=== PATIENT | male | born 1980 | race American Indian/Alaskan Native ===

== ENCOUNTER 2017-09-23 05:10 | Emergency (ER) | payer BC, OTHER, SELFPAY ==
[2017-09-23 05:26] VITALS: BP 125/80; PULSE 72; RESP 16; TEMP 98.2; O2SAT 96
[2017-09-23] MEDS ORDERED: Lidocaine 1% Inj (20ml) IJ ONE (05:27)
[2017-09-23] MEDS ORDERED: Povidone Iodine Topical 10% Sol ONE (05:29)
[2017-09-23] MEDS ORDERED: Lidocaine 2% Inj (20ml) ONE (05:31)
--- NOTE | 2017-09-23 05:32 | ED PDOC ---
Upper Extremity Pain/Injury Time Seen by Provider: 09/23/17 05:18 Chief Complaint (Nursing): Finger,Hand,&Wrist Chief Complaint (Provider): Laceration on left 2nd digit History Per: Patient History/Exam Limitations: no limitations Onset/Duration Of Symptoms: Hrs Current Symptoms Are (Timing): Still Present Quality: "Pain" Additional History Per: Patient Additional Complaint(s): 37yo male, comes to ER for evaluation of a laceration he sustained at 10PM last night. Patient states he was cleaning a wall at home when a sharp portion of the showerhead cut his left index finger, causing the laceration. At present, he denies any foreign body sensation, numbness or tingling. He sates his tetanus is up to date and he last had the vaccination 2 years ago. Otherwise, he has no other medical complaints. Past Medical History Reviewed: Historical Data, Nursing Documentation, Vital Signs Vital Signs: Last Vital Signs Temp 98.2 F 09/23/17 05:22 Pulse 72 09/23/17 05:22 Resp 16 09/23/17 05:22 BP 125/80 09/23/17 05:22 Pulse Ox 96 09/23/17 05:22 - Medical History PMH: Asthma - Surgical History Surgical History: No Surg Hx - Family History Family History: States: No Known Family Hx - Home Medications Home Medications: Ambulatory Orders Medication Instructions Recorded Naproxen [Naprosyn] 1 tab PO BID PRN #25 tab 02/08/14 oxyCODONE/Acetaminophen [Percocet 1 tab PO QID PRN #20 tab 02/08/14 5/325 mg Tab] Cephalexin [cephalexin] 500 mg PO Q6 #12 cap 09/23/17 - Allergies Allergies/Adverse Reactions: Allergies Allergy/AdvReac Type Severity Reaction Status Date / Time No Known Allergies Allergy Verified 09/23/17 05:22 Review of Systems ROS Statement: Except As Marked, All Systems Reviewed And Found Negative Musculoskeletal: Positive for: Hand Pain (laceration left 2nd digit) Neurological: Negative for: Weakness, Numbness, Other (tingling) Physical Exam - Reviewed Nursing Documentation Reviewed: Yes Vital Signs Reviewed: Yes - Physical Exam Appears: Positive for: Well, Non-toxic, No Acute Distress Skin: Positive for: Normal Color Eye Exam: Positive for: Normal appearance Pulses-Radial (L): 2+ Pulses-Radial (R): 2+ Extremity: Positive for: Normal ROM (FROM actively of all joints on left 2nd digit), Capillary Refill (< 2 seconds), Other (on dorsal surface of left 2nd digit from DIP extending to middle phalanx, ther is a 1.5 cm v-shaped laceration ; no active bleeding or nail involvement) Neurologic/Psych: Positive for: Alert, Oriented. Negative for: Motor/Sensory Deficits - ECG O2 Sat by Pulse Oximetry: 96 (RA) Pulse Ox Interpretation: Normal Medical Decision Making Medical Decision Making: Impression: Laceration repair Plan: -- Laceration repaired using sutures; see procedure note. Wound cleaned and dressed in sterile dressing Patient instructed on wound care. Scribe Attestation: Documented by Laurel Chan, acting as a scribe for CASIE Sterling. Provider Scribe Attestation: All medical record entries made by the Scribe were at my direction and personally dictated by me. I have reviewed the chart and agree that the record accurately reflects my personal performance of the history, physical exam, medical decision making, and the department course for this patient. I have also personally directed, reviewed, and agree with the discharge instructions and disposition. Procedures - Time-Out Type of Procedure: Laceration repair Site of Procedure: Left 2nd digit Correct Patient: Yes Correct Procedure: Yes Correct Site Marked: Yes PA/Tech: CASIE Sterling - Laceration/Wound Repair Left 2nd digit Wound Length (cm): 1.5 Wound's Depth, Shape: superficial, irregular (v-shaped) Wound Explored: clean Anesthesia: 1% Lidocaine Wound Repaired With: Sutures Suture Size/Type: 5:0, nylon (ethilon) Number of Sutures: 7 Wound Complexity: Simple Sterile Dressing Applied?: Yes Splint Applied?: Yes Type of Splint Applied: finger splint Progress: Patient tolerated procedure well. Disposition - Clinical Impression Clinical Impression: Finger laceration - Patient ED Disposition Is Patient to be Admitted: No - Disposition Referrals: [facility] [Outside] Disposition: Routine/Home Disposition Time: 06:17 Condition: STABLE Additional Instructions: FOLLOW UP WITH YOUR DOCTOR OR RETURN TO ED IN 2 DAYS FOR WOUND CHECK SUTURE REMOVAL IN 10-14 DAYS CHANDRA CAVAZOS, thank you for letting us take care of you today. Your provider was Deshawn Acevedo MD and you were treated for LT HAND LACERATION. The emergency medical care you received today was directed at your acute symptoms. If you were prescribed any medication, please fill it and take as directed. It may take several days for your symptoms to resolve. Return to the Emergency Department if your symptoms worsen, do not improve, or if you have any other problems. Please contact your doctor or call one of the physicians/clinics you have been referred to that are listed on the Patient Visit Information form that is included in your discharge packet. Bring any paperwork you were given at discharge with you along with any medications you are taking to your follow up visit. Our treatment cannot replace ongoing medical care by a primary care provider outside of the emergency department. Thank you for allowing the [facility] team to be part of your care today. If you had an X-Ray or CT scan: A Radiologist will review the ED reading if any change in treatment is needed we will contact you. If you had a blood, urine, or wound culture: It will take several days for the results, if any change in treatment is needed we will contact you. If you had an STI test: It will take 48 hours for the results. Please call after 1 week if you have not heard back. Prescriptions: Cephalexin [cephalexin] 500 mg PO Q6 #12 cap Instructions: Laceration Repair With Stitches (DC) Forms: [employer] ([place]), [facility] ED School/Work Excuse Print Language: [place]OV[place]
== END 2017-09-23 06:40 | disposition home or self-care (01) ==
LOC: H.ER 05:10
DX: S61.211A Laceration without foreign body of left index finger without damage to nail, initial encounter (principal); W26.8XXA Contact with other sharp object(s), not elsewhere classified, initial encounter; Y92.89 Other specified places as the place of occurrence of the external cause